=== PATIENT | male | born 1970 | race Caucasian/White ===

== ENCOUNTER → 2017-10-21 | Outpatient (CLI) | payer OTHER | END | disposition home or self-care (01) | LOC: LAB 08:28 | DX: K76.0 Fatty (change of) liver, not elsewhere classified (principal); K82.9 Disease of gallbladder, unspecified ==

== ENCOUNTER 2018-11-26 10:08 | Inpatient (IN) | payer OTHER ==
[2018-11-26] VITALS (48 sets, daily range): BP systolic 81–123; BP diastolic 35–79
[~2018-11-26] VITALS: Ht 182.8 cm; Wt 112.8 kg
--- NOTE | ~2018-11-26 | PR ---
[place], [place] PROGRESS NOTE [id number] UN[facility] #: [id number] ROOM: 427 DOCTOR: VERNON REYES MD BIRTHDATE: [birth year] DOS: 11/29/2018 SUBJECTIVE: The patient is doing better. He says that he is unable to sleep. His breathing is much better. Cough has subsided. OBJECTIVE: VITAL SIGNS: Blood pressure is 133/88, pulse of 71, respirations 20, temperature 98.1. LUNGS: Clear. HEART: Regular. ABDOMEN: Obese, soft. EXTREMITIES: Without any edema. ASSESSMENT AND PLAN: 1. Right lower lobe pneumonia, on IV antibiotics, doing clinically much better. 2. Sepsis pattern with blood cultures done on the at 10:54 showing gram-positive cocci and negative aerobic. Another bottle at the same time did not show any bacterial growth, so this could be a contaminant. Sputum culture shows normal casimiro. The patient is stable. The plan is to discharge him to home today on p.o. antibiotics and follow up with his PCP as an outpatient. VERNON REYES MD CM:PNTRANS [id number] VERNON REYES MD 11/30/18 1251 interface
--- NOTE | ~2018-11-26 | PR ---
[place], [place] PROGRESS NOTE NAME: DARI MURILLO [facility] #: [id number] UNIT #: [id number] ROOM: 427 DOCTOR: VERNON REYES MD BIRTHDATE: [birth year] DOS: SUBJECTIVE: The patient is doing better, does not have any new complaints. He has a cough, which is productive of scant amounts of yellow sputum. OBJECTIVE: VITAL SIGNS: Blood pressure is 103/61, pulse of 78, respirations 16, temperature 98.4. LUNGS: Diminished breath sounds, scattered rales in the right lung base. HEART: Regular. ABDOMEN: Obese. EXTREMITIES: Without any edema. IMAGING: CT of the chest shows right lower lobe pneumonia with parapneumonic pleural effusion. LABORATORY DATA: Blood cultures, gram-positive cocci in pairs and chains in the aerobic. Complete culture report is not available yet. ASSESSMENT AND PLAN: 1. Right lower lobe pneumonia, possible gram negative. We do not have a sputum culture back. Continue IV antibiotics. 2. Sepsis with positive blood cultures. Awaiting final identification to decide on medication plan for home. 3. Lactic acid has resolved. WBC count has become normal with the antibiotics. 4. Type 2 diabetes mellitus. Blood sugar is fairly controlled, 215 yesterday. 5. Benign hypertension. Pressures still on the low side, does not need to take any antihypertensives right now. VERNON REYES MD CM:PNTRANS [phone] VERNON REYES MD 11/28/18 1653 interface
--- NOTE | ~2018-11-26 | WRIGHTHP ---
[place], [place] PATIENT HISTORY AND PHYSICAL EXAM NAME: DARI MURILLO [facility] #: [id number] UNIT #: [id number] ROOM: 427 DOCTOR: VERNON REYES MD BIRTHDATE: [birth year] DOS: 11/26/2018 HISTORY OF PRESENT ILLNESS: This patient is not known to me. 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 He had a high-grade fever and severe persistent cough the day before admission, so he decided to come into the Emergency Room. He denies having any chest pains, palpitations, does not have any pleuritic complaint, does not have any nausea, any emesis, any abdominal pain, fever or chills. PAST MEDICAL HISTORY: Significant for: 1. Hypertension. 2. Type 2 diabetes mellitus. MEDICATIONS: Amlodipine/olmesartan 5/40 one tablet daily, gemfibrozil 600 b.i.d., metformin 500 two in the morning and 2 in the evening, Effexor 150 daily, vitamin E 400 units b.i.d. SOCIAL HISTORY: Nonsmoker, does not use any alcohol. 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 FAMILY HISTORY: Significant for father, who is healthy. Mother who . The patient is unable to tell me exact diagnosis. PHYSICAL EXAMINATION: GENERAL: He is awake and alert and oriented. VITAL SIGNS: Graphic trend shows a blood pressure of 108/63, pulse of 90, respirations 14, afebrile. LUNGS: Diminished breath sounds. No wheezes, rales or rhonchi heard. HEART: Regular, tachycardic. ABDOMEN: Obese. EXTREMITIES: Without any edema. ASSESSMENT AND PLAN: The patient is a 48-year-old who presents with: 1. Fever, cough, mild shortness of breath. He was hypotensive in the Emergency Room with elevated lactic acid, underlying sepsis. The patient's rapid flu was negative. Because of sepsis and hypotension, he was placed on IV fluids and admitted to ICU and Levophed was started. The vasopressor has helped. His pressures have normalized this morning. The Levophed has been tapered off. 2. Right lower lobe pneumonia. We will do a CT of the chest to see the extent of infection. IV antibiotics have been started. Sputum cultures have been ordered. 3. Positive blood cultures this morning. Final identification is not available. The patient has been ordered vancomycin, Zosyn and azithromycin, which are being continued for right now until we get final identification, only one bottle is positive so far. 4. Benign hypertension since hypotensive pressure, antihypertensives are on hold. 5. Type 2 diabetes mellitus. Blood sugars will be checked with coverage scale. Hold off metformin right now. 6. Acute kidney injury, possibly acute tubular necrosis from hypotension. [place], [place] PATIENT HISTORY AND PHYSICAL EXAM NAME: DARI MURILLO UNIT #: [id number] ROOM: [facility] DOCTOR: VERNON REYES MD BIRTHDATE: [birth year] 7. Hypokalemia. Supplementation ordered. VERNON REYES MD CM:HISPHYS:PATIENT HISTORY AND PHYSICAL EXAMINATION [id number] VERNON REYES MD 11/29/18 1412 interface
--- NOTE | ~2018-11-26 | DS ---
[place], [place] DISCHARGE SUMMARY NAME: DARI MURILLO [facility] #: [id number] UNIT #: [id number] ROOM: 427 DOCTOR: VERNON REYES MD BIRTHDATE: [birth year] DOS: 11/29/2018 HOSPITAL COURSE: This patient is a 48-year-old. The patient comes in with complaints of increasing weakness, tiredness, high-grade fever plus persistent cough. Please refer to H and P for details. After admission, he was found to be septic with tachycardia, tachypnea, high-grade fever, elevated lactic acid and chest x-ray showing right lower lobe pneumonia. CT of the chest was done, which proved that it was indeed an acute community-acquired pneumonia. The patient is placed on IV antibiotics. Blood cultures, sputum cultures were done. Sputum cultures are negative. Blood cultures only one bottle anaerobic did come back gram-positive, but the identification has not been completed yet. The other bottle is negative. The patient is stable and improved with IV fluids and the pressors have been discontinued. The lactic acid is normalized. WBC count is normal, so the plan is to discharge him to home today. He will need to have MRSA of the nares was negative. He will need to have an outpatient Chest x-ray to see whether the pneumonia is clearing and also he will need to be placed on antibiotics upon discharge. DISCHARGE MEDICATIONS: His home medications, which include Akira 5/40 one tablet daily, Lopid 600 b.i.d., Effexor 150 daily, metformin 500 two in the morning, 2 in the evening, vitamin E 400 units twice a day, Augmentin 875 twice a day for 7 days. VERNON REYES MD CM:DISCHARG [id number] VERNON REYES MD 11/29/18 2323 interface
--- NOTE | ~2018-11-26 | EKG ---
[place], [place] ELECTROCARDIOGRAM REPORT NAME: DARI MURILLO UNIT #: [id number] ROOM: 427 DOCTOR: SHELLIE DRAFT REPORT BIRTHDATE: [birth year] [facility] Test Date: 2018-11-26 Test Time: 10:20:14 Pat Name: DARI MURILLO Department: Room: 427 Gender: M Motor Tester: Love [place] : 1970 Requested By: KELSEY WHITE Order Number: [id number] Reading MD: Niraj Bergeron MD Measurements Intervals Wilcox Rate: 107 P: 78 OR: 74 QRS: 27 QRSD: 113 T: -89 QT: 326 QTc: 435 Interpretive Statements Sinus tachycardia Borderline intraventricular conduction delay Abnormal R-wave progression, early transition Abnrm T, consider ischemia, anterolateral lds Electronically Signed On 12-02-2018 8:05:23 PDT by Niraj Bergeron MD CM:EKGRPT:ELECTROCARDIOGRAM REPORT [id number] KELSEY HENSLEY DRAFT REPORT KELSEY LEVY
[2018-11-26] MEDS ORDERED: AZOR 5-40 MG T1 EACH PO (10:16)
[2018-11-26] MEDS ORDERED: EFFEXOR XR150 M1 PO (10:16)
[2018-11-26] MEDS ORDERED: LOPID600 M1 PO (10:16)
[2018-11-26] MEDS ORDERED: GLUCOPHAGE500 MG PO (10:17)
[2018-11-26 11:06] LABS: HEMATOCRIT 35.3 % (42.0-52.0); HEMOGLOBIN 12.2 g/dl (14.0-18.0); MEAN CELL VOLUME 86.7 fl (80.0-94.0); MEAN CORPUSCULAR HGB CONC 34.6 g/dl (33.0-37.0); MEAN PLATELET VOLUME 11.3 fl (9.6-12.3); PLATELET COUNT AUTOMATED 145 10*3/uL (130-400); RED BLOOD COUNT 4.07 10*6/uL (4.50-5.90); WHITE BLOOD COUNT 11.7 10*3/uL (4.8-10.8)
[2018-11-26 11:16] LABS: ACT PARTIAL THROMBO TIME 26.5 SECONDS (20.8-31.5); INTERNATIONAL NORM RATIO 1.1 (2.0-3.5)
[2018-11-26 11:21] LABS: ALBUMIN 3.4 gm/dl (3.1-4.5); ALKALINE PHOSPHATASE 52 U/L (45-117); BUN 33 mg/dl (7-24); CHLORIDE 100 mmol/L (98-107); CREATININE 1.87 mg/dL (0.70-1.30); LIPASE 45 U/L (73-393); POTASSIUM 3.2 mmol/L (3.5-5.1); SGOT/AST 12 IU/L (3-35); SGPT/ALT 27 U/L (12-78); SODIUM 134 mmol/L (136-145); TOTAL PROTEIN 7.3 gm/dL (6.4-8.2)
[2018-11-26 11:27] LABS: TROPONIN I < 0.015 ng/ml (<0.045)
[2018-11-26 11:31] LABS: PLATELET SUFFICIENCY NORMAL (NORMAL); TOTAL CELLS COUNTED 100 #CELLS
[2018-11-26 11:32] LABS: POLYCHROMASIA SLIGHT
[2018-11-26 12:06] LABS: BILIRUBIN NEGATIVE (NEGATIVE); BLOOD NEGATIVE (NEGATIVE); CLARITY SL CLOUDY (CLEAR); COLOR YELLOW (YELLOW); GLUCOSE NEGATIVE (NEGATIVE); KETONE TRACE (NEGATIVE); LEUKO ESTERASE NEGATIVE (NEGATIVE); NITRITE NEGATIVE (NEGATIVE); PH 5.5 (5.0-9.0); UROBILINOGEN 0.2 E.U./dl (0.2-1.0)
[2018-11-26 12:16] LABS: BACTERIA 3+; HYALINE CAST 50-55
--- NOTE | 2018-11-26 12:40 | NUR ---
PT SITTING UP IN BED WITH AT BEDSIDE EATING LUNCH. NO VERBAL COMPLAINTS NOTED.
--- NOTE | 2018-11-26 13:02 | NUR ---
PT SITTING ON THE EDGE OF THE BED, DENIES ANY DIZZINESS, NO VOICED C/O AT THIS TIME.
--- NOTE | 2018-11-26 13:35 | NUR ---
A 48 yr old male, admitted to [facility]U, under the services of VERNON Florence MD with a diagnosis of Severe sepsis, renal insufficeincy, pneumonia and hypokalemia. Chief complaint is passed out at [facility] today, after being sick for almost 2 weeks, worse since yesterday. Patient arrived via stretcher from ER. Monitor applied. Initial assessment completed. Vital signs taken and recorded. See assessment for past medical history, medications and allergies. Patient and/or family oriented to unit. [facility] visitation policy reviewed. Clothing/patient valuable form completed. JORDAN ALCALA
[2018-11-26] MEDS ORDERED: VITAMIN E400 UNI3 PO (14:02)
--- NOTE | 2018-11-26 14:42 | NUR ---
MESSAGE LEFT ON DR REYES'S VOICEMAIL TO CALL ME BACK WITH ADMISSION ORDERS.
--- NOTE | 2018-11-26 15:02 | NUR ---
DR REYES CALLED BACK, REVIEWED CONDITION. ORDERS RECEIVED.
--- NOTE | 2018-11-26 16:28 | NUR ---
AN ADDITIONAL IV SITE(20 ACCUCATH) STARTED LEFT UPPER ARM, USING ULTRASOUND FOR GUIDANCE. PT HAS BEEN OOB TO BSC FOR WATERY BM AND URINE. HE DENIES DIZZINESS ON CHANGE OF POSITION. IV FLUIDS HAVE BEEN STARTED PER ORDER. AT BEDSIDE.
--- NOTE | 2018-11-26 16:48 | NUR ---
MENTIONS THAT PT HAS SOME "BAD TEETH". WILL PASS ON TO NEXT SHIFT.
--- NOTE | 2018-11-26 17:05 | NUR ---
CHART CHECK COMPLETE.
--- NOTE | 2018-11-26 17:29 | NUR ---
PT WITHOUT COMPLAINTS OR DISTRESS. VISITORS AT BEDSIDE. LEVOPHED TITRATED DOWN TO 7 MICS.
--- NOTE | 2018-11-26 18:24 | NUR ---
MAP REMAINS IN 80'S. LEVOPHED TITRATED DOWN TO 6 MICS/MIN.
--- NOTE | 2018-11-26 18:35 | NUR ---
117/77 WITH MAP 90. LEVOPHED HAS BEEN TITRATED DOWN TO 4 MICS/MIN.
--- NOTE | 2018-11-26 18:50 | NUR ---
LEVOPHED TITRATED DOWN TO 3 MICS/MIN.
--- NOTE | 2018-11-26 20:21 | NUR ---
LEVOPHED TITRATED DOWN TO 2 MICS/MIN.
--- NOTE | 2018-11-26 21:12 | NUR ---
PT SLEEPING. LEVOPHED REMAINS AT 2MCG/MIN.
--- NOTE | 2018-11-26 21:22 | NUR ---
IV SITES REMAIN ASYMPTOMATIC. EXCELLENT BLOOD RETURN FREQUENTLY CHECKED AT LEVOPHED SITE.
--- NOTE | 2018-11-26 21:33 | NUR ---
PT LAYING ON HIS LT SIDE SLEEPING...AWAKENS EASILY TO VERBAL STIMULI, ANSWERS AND RESPONDS APPROPRIATELY. BP 83/44 WITH MAP 59. LEVOPHED TITRATED BACK UP TO 4 MICS/MIN.
--- NOTE | 2018-11-26 22:52 | NUR ---
MAP 80'S. LEVOPHED TITRATED DOWN TO 3 MICS/MIN. PT SLEEPING.
[2018-11-27] VITALS (10 sets, daily range): BP systolic 103–128; BP diastolic 53–72
--- NOTE | 2018-11-27 | NUR ---
LEVOPHED TO 2 MICS/MIN.
--- NOTE | 2018-11-27 00:45 | NUR ---
LEVOPHED TITRATED TO OFF.
--- NOTE | 2018-11-27 01:08 | NUR ---
BP 111/59 (80) SINCE LEVOPHED GTT OFF. PT WITHOUT COMPLAINTS.
--- NOTE | 2018-11-27 06:01 | NUR ---
PT SLEEPING. ALSO, DR REYES WAS NOTIFIED OF CRITICAL LAB RESULT OF GRAM POSITIVE COCCI IN PAIRS IN ANEROBIC BOTTLE OF BLOOD CULTURE (PRELIMINARY) - ORDERS RECEIVED.
--- NOTE | 2018-11-27 06:22 | NUR ---
DR REYES VISITS. CONDITION DISCUSSED.
[2018-11-27 07:04] LABS: CHLORIDE 110 mmol/L (98-107); CREATININE 0.82 mg/dL (0.70-1.30); POTASSIUM 3.6 mmol/L (3.5-5.1); SODIUM 141 mmol/L (136-145)
[2018-11-27 07:06] LABS: BUN 16 mg/dl (7-24)
[2018-11-27 07:10] LABS: BASO % 0.1 % (0.0-1.0); EOS % 0.1 % (1.0-4.0); HEMATOCRIT 31.2 % (42.0-52.0); LYMPH # 0.8 10*3/uL (1.3-4.4); LYMPH % 9.1 % (27.0-41.0); MEAN CORPUSCULAR HGB 30.3 pg (27.0-31.0); MEAN CORPUSCULAR HGB CONC 35.3 g/dl (33.0-37.0); MEAN PLATELET VOLUME 12.1 fl (9.6-12.3); MONO # 0.5 10*3/uL (0.1-1.0); MONO % 5.4 % (3.0-9.0); NEUT # 7.7 10*3/uL (2.3-7.9); NEUT % 82.8 % (47.0-73.0); PLATELET COUNT AUTOMATED 124 10*3/uL (130-400); RED BLOOD COUNT 3.63 10*6/uL (4.50-5.90); RED CELL DISTRI WIDTH 14.2 % (0-14.5); WHITE BLOOD COUNT 9.2 10*3/uL (4.8-10.8)
--- NOTE | 2018-11-27 07:20 | NUR ---
DR REYES IN TO SEE PT EARLIER. NEW ORDERS RECEIVED.
--- NOTE | 2018-11-27 08:03 | NUR ---
PT AAOX3. RESP EASY. VSS. LUNG FLORES CLEAR. PT STATES HE HAS AN OCCASSIONAL COUGH. PT DENIES SOB OR PAIN AT THIS TIME. NO ACUTE DISTRESS NOTED. PT INFORMED OF CT OF CHEST ORDERED BY DR REYES. HIS QUESTIONS WERE ANSERED.
--- NOTE | 2018-11-27 08:45 | NUR ---
PT TO CT SCAN VIA WC.
--- NOTE | 2018-11-27 11:47 | NUR ---
8 HOUR CHART CHECK COMPLETED.
--- NOTE | 2018-11-27 13:30 | NUR ---
PT AMBULATED OUT TO 427. GAIT STEADY. PT REPORT GIVEN TO RECEIVING NURSE.
--- NOTE | 2018-11-27 22:47 | NUR ---
MEDICATED WITH JOEN BHARATIIEN FOR C/O SLEEPLESSNESS
[2018-11-28] VITALS: BP 103/61
[2018-11-28 07:16] LABS: BASO % 0.2 % (0.0-1.0); EOS # 0.1 10*3/uL (0.0-0.4); EOS % 0.9 % (1.0-4.0); HEMATOCRIT 29.3 % (42.0-52.0); HEMOGLOBIN 9.8 g/dl (14.0-18.0); LYMPH # 1.2 10*3/uL (1.3-4.4); LYMPH % 14.5 % (27.0-41.0); MEAN CORPUSCULAR HGB 29.9 pg (27.0-31.0); MEAN CORPUSCULAR HGB CONC 33.4 g/dl (33.0-37.0); MONO # 0.4 10*3/uL (0.1-1.0); MONO % 4.6 % (3.0-9.0); NEUT # 6.7 10*3/uL (2.3-7.9); NEUT % 78.3 % (47.0-73.0); PLATELET COUNT AUTOMATED 146 10*3/uL (130-400); RED BLOOD COUNT 3.28 10*6/uL (4.50-5.90); RED CELL DISTRI WIDTH 14.2 % (0-14.5); WHITE BLOOD COUNT 8.6 10*3/uL (4.8-10.8)
[2018-11-28 07:20] LABS: MEAN CELL VOLUME 89.3 fl (80.0-94.0)
[2018-11-28 07:46] LABS: BUN 18 mg/dl (7-24); CHLORIDE 108 mmol/L (98-107); CREATININE 0.76 mg/dL (0.70-1.30); POTASSIUM 4.1 mmol/L (3.5-5.1); SODIUM 139 mmol/L (136-145)
[2018-11-28 08:00] VITALS: BP 123/75
[2018-11-28 12:00] VITALS: BP 133/75
[2018-11-28 16:00] VITALS: BP 121/70
[2018-11-28 20:00] VITALS: BP 122/68
[2018-11-29] VITALS: BP 135/83
[2018-11-29 07:37] LABS: BASO % 0.3 % (0.0-1.0); EOS # 0.1 10*3/uL (0.0-0.4); HEMATOCRIT 31.1 % (42.0-52.0); HEMOGLOBIN 10.1 g/dl (14.0-18.0); LYMPH # 1.2 10*3/uL (1.3-4.4); LYMPH % 19.4 % (27.0-41.0); MEAN CELL VOLUME 89.4 fl (80.0-94.0); MEAN CORPUSCULAR HGB CONC 32.5 g/dl (33.0-37.0); MONO # 0.4 10*3/uL (0.1-1.0); MONO % 6.6 % (3.0-9.0); NEUT # 4.5 10*3/uL (2.3-7.9); NEUT % 72.2 % (47.0-73.0); PLATELET COUNT AUTOMATED 176 10*3/uL (130-400); RED BLOOD COUNT 3.48 10*6/uL (4.50-5.90); WHITE BLOOD COUNT 6.2 10*3/uL (4.8-10.8)
[2018-11-29 07:58] LABS: BUN 17 mg/dl (7-24); CHLORIDE 107 mmol/L (98-107); POTASSIUM 4.1 mmol/L (3.5-5.1); SODIUM 141 mmol/L (136-145)
[2018-11-29 08:00] VITALS: BP 126/78
--- NOTE | 2018-11-29 08:30 | NUR ---
Air Support Operations Operator in to talk to patient. Patient states lives at home with his . There are 0 steps in the home. Physician: Dr. Fredy Mock Pharmacy: [facility] Home health services: none Patient's level of ADLs: INDEPENDENT Patient has working utilities: yes DME: none Follow-up physician's appointment after d/c: he prefers to make his own follow up appt after discharge Does patient want to access PORTAL?: no Discharge plan discussed with patient. He lives at home with his . He is independent in his ADLs and ambulation. Discussed home health care services and he denies any home needs at this time. When medically stable he will be discharged to home. MAZIN TURNER
--- NOTE | 2018-11-29 08:49 | NUR ---
SPEECH PATHOLOGY Nursing screen complete. Speech pathology services are not indicated at this time however this dept. will be available should future needs arise. CAROL NORRIS MSCCC-BUSINESS ATTORNEY
--- NOTE | 2018-11-29 09:00 | NUR ---
PT SEEN AT THIS TIME. PT STATES HE IS READY TO GO HOME. NO S/S OF DISTRESS NOTED AND NO SOB NOTED. PT HAS NO COMPLAINTS AT THIS TIME. PT IS PLEASANT/COOPERATIVE AND USING APPROPRIATE SPEECH. WILL CONTINUE TO MONITOR.
[2018-11-29 12:00] VITALS: BP 133/88
[2018-11-29] MEDS ORDERED: AUGMENTIN 875-875 MG PO (14:53)
--- NOTE | 2018-11-29 15:39 | NUR ---
Discharge instructions reviewed with patient/family. Patient receptive and verbalizes understanding. Follow-up care arranged. Written instructions given to patient/family. TREY SANDERS
--- NOTE | 2018-11-30 08:13 | NUR ---
PHYSICAL THERAPY Nursing screen received. PAtient discharged. Thank you. Adenike Edge,PT
--- NOTE | 2018-12-01 13:23 | NUR ---
Nursing screen received. Patient discharged before OT screen could be completed. Thank you. Ruchi Hernández OTR/L
== END 2018-11-29 15:39 | disposition home or self-care (01) | DRG 871 ==
LOC: ED 10:08 → ICCU 13:02 → 4E 13:02 → ICCU 11-27 06:42 → 4E 11-27 13:35
PROVIDERS: Physician Assistant; ADMIT Internal Medicine
DX: A41.9 Sepsis, unspecified organism (principal); N17.0 Acute kidney failure with tubular necrosis; J18.1 Lobar pneumonia, unspecified organism; E87.2 Acidosis; E87.6 Hypokalemia; R65.20 Severe sepsis without septic shock; I10 Essential (primary) hypertension; E11.9 Type 2 diabetes mellitus without complications

== ENCOUNTER → 2018-12-17 | Outpatient (CLI) | payer OTHER ==
[~2018-12-17] MED LIST: AUGMENTIN 875-875 MG PO; AZOR 5-40 MG T1 EACH PO; EFFEXOR XR150 M1 PO; GLUCOPHAGE500 MG PO; LOPID600 M1 PO; VITAMIN E400 UNI3 PO
== END | disposition home or self-care (01) ==
LOC: CT 15:57
DX: R91.1 Solitary pulmonary nodule (principal); R05 Cough; I10 Essential (primary) hypertension; Z90.49 Acquired absence of other specified parts of digestive tract

== ENCOUNTER → 2021-12-28 | Outpatient (CLI) | payer OTHER ==
[2021-12-28 08:56] LABS: HEMATOCRIT 42.3 % (42.0-52.0); MEAN CELL VOLUME 82.5 fl (80.0-94.0); MEAN CORPUSCULAR HGB 27.5 pg (27.0-31.0); MEAN CORPUSCULAR HGB CONC 33.3 g/dl (33.0-37.0); MEAN PLATELET VOLUME 11.5 fl (9.6-12.3); RED BLOOD COUNT 5.13 10*6/uL (4.50-5.90); RED CELL DISTRI WIDTH 13.7 % (0-14.5)
[2021-12-28 09:14] LABS: ALKALINE PHOSPHATASE 84 U/L (45-117); BUN 16 mg/dl (7-24); CHLORIDE 103 mmol/L (98-107); CHOLESTEROL 161 mg/dL (<200); CPK 71 U/L (39-308); CREATININE 0.83 mg/dL (0.70-1.30); POTASSIUM 4.3 mmol/L (3.5-5.1); SGOT/AST 33 IU/L (3-35); SGPT/ALT 63 U/L (12-78); SODIUM 135 mmol/L (136-145); TOTAL PROTEIN 7.8 gm/dL (6.4-8.2); TRIGLYCERIDES 427 mg/dl (<150)
== END | disposition home or self-care (01) ==
LOC: LAB 08:37
PROVIDERS: ATTEND Family Medicine
DX: Z00.00 Encounter for general adult medical examination without abnormal findings (principal); E78.00 Pure hypercholesterolemia, unspecified; E11.9 Type 2 diabetes mellitus without complications

== ENCOUNTER → 2022-07-02 | Outpatient (CLI) | payer OTHER ==
[2022-07-02 08:17] LABS: HEMATOCRIT 39.8 % (42.0-52.0); MEAN CELL VOLUME 83.3 fl (80.0-94.0); MEAN CORPUSCULAR HGB 28.5 pg (27.0-31.0); MEAN CORPUSCULAR HGB CONC 34.2 g/dl (33.0-37.0); MEAN PLATELET VOLUME 11.5 fl (9.6-12.3); RED BLOOD COUNT 4.78 10*6/uL (4.50-5.90); RED CELL DISTRI WIDTH 13.7 % (0-14.5); WHITE BLOOD COUNT 4.7 10*3/uL (4.8-10.8)
[2022-07-02 08:34] LABS: ALKALINE PHOSPHATASE 71 U/L (46-116); BUN 17 mg/dl (9-23); CHLORIDE 102 mmol/L (98-107); CHOLESTEROL 160 mg/dL (<200); CPK 60 U/L (34-171); LDL CHOLESTEROL 49 mg/dL (9-159); POTASSIUM 4.4 mmol/L (3.4-5.1); SGPT/ALT 47 U/L (10-49); SODIUM 137 mmol/L (136-145); TRIGLYCERIDES 383 mg/dl (<150)
[2022-07-02 08:35] LABS: TOTAL PROTEIN 7.5 gm/dL (6.0-8.0)
== END | disposition home or self-care (01) ==
LOC: LAB 07:04
PROVIDERS: ATTEND Family Medicine
DX: I10 Essential (primary) hypertension (principal); E11.9 Type 2 diabetes mellitus without complications; E78.00 Pure hypercholesterolemia, unspecified; E55.9 Vitamin D deficiency, unspecified

== ENCOUNTER 2023-03-02 11:39 | Inpatient (IN) | payer OTHER ==
[~2023-03-02] VITALS: Ht 182.9 cm; Wt 107.5 kg
[2023-03-02 11:42] VITALS: BP 93/60
[2023-03-02 12:51] LABS: BASO # 0.1 10*3/uL (0.0-0.1); BASO % 0.5 % (0.0-1.0); EOS % 0.1 % (1.0-4.0); HEMATOCRIT 40.8 % (42.0-52.0); LYMPH # 1.2 10*3/uL (1.3-4.4); LYMPH % 11.2 % (27.0-41.0); MEAN CELL VOLUME 82.8 fl (80.0-94.0); MEAN CORPUSCULAR HGB 25.8 pg (27.0-31.0); MEAN CORPUSCULAR HGB CONC 31.1 g/dl (33.0-37.0); MEAN PLATELET VOLUME 11.8 fl (9.6-12.3); MONO # 0.4 10*3/uL (0.1-1.0); NEUT # 9.3 10*3/uL (2.3-7.9); NEUT % 83.8 % (47.0-73.0); PLATELET COUNT AUTOMATED 272 10*3/uL (130-400); RED BLOOD COUNT 4.93 10*6/uL (4.50-5.90); RED CELL DISTRI WIDTH 14.8 % (0-14.5); WHITE BLOOD COUNT 11.1 10*3/uL (4.8-10.8)
[2023-03-02 13:15] LABS: ALKALINE PHOSPHATASE 74 U/L (46-116); BUN 14 mg/dl (9-23); CHLORIDE 104 mmol/L (98-107); LIPASE 47 U/L (12-53); SGPT/ALT 38 U/L (10-49); TOTAL PROTEIN 7.4 gm/dL (6.0-8.0)
[2023-03-02 13:21] VITALS: BP 90/58
[2023-03-02 15:54] LABS: BILIRUBIN Negative (Negative); BLOOD Negative (Negative); CLARITY Cloudy (Clear); COLOR Yellow (Yellow); GLUCOSE Negative (Negative); KETONE Negative (Negative); LEUKO ESTERASE Negative (Negative); NITRITE Negative (Negative); SPECIFIC GRAVITY >= 1.030 (1.001-1.030); UROBILINOGEN 0.2 E.U./dl (0.0-1.0)
[2023-03-02 16:12] LABS: BACTERIA 2+; EPITHELIAL CELLS 0-2
[2023-03-02 17:20] VITALS: BP 122/71
[2023-03-02 20:00] VITALS: BP 121/72
[2023-03-03] VITALS (14 sets, daily range): BP systolic 92–149; BP diastolic 43–87
[2023-03-04] VITALS: BP 113/67
[2023-03-04 06:58] LABS: BASO % 0.1 % (0.0-1.0); HEMATOCRIT 26.2 % (42.0-52.0); LYMPH # 1.5 10*3/uL (1.3-4.4); MEAN CELL VOLUME 81.6 fl (80.0-94.0); MEAN CORPUSCULAR HGB 25.9 pg (27.0-31.0); MEAN CORPUSCULAR HGB CONC 31.7 g/dl (33.0-37.0); MEAN PLATELET VOLUME 11.7 fl (9.6-12.3); MONO # 0.9 10*3/uL (0.1-1.0); MONO % 7.5 % (3.0-9.0); NEUT # 9.8 10*3/uL (2.3-7.9); RED BLOOD COUNT 3.21 10*6/uL (4.50-5.90); RED CELL DISTRI WIDTH 15.3 % (0-14.5); WHITE BLOOD COUNT 12.2 10*3/uL (4.8-10.8)
[2023-03-04 06:59] LABS: PLATELET COUNT AUTOMATED 167 10*3/uL (130-400)
[2023-03-04 07:19] LABS: BUN 12 mg/dl (9-23); CHLORIDE 106 mmol/L (98-107)
[2023-03-04 07:20] LABS: POTASSIUM 3.9 mmol/L (3.4-5.1)
[2023-03-04 08:00] VITALS: BP 105/62
[2023-03-04 12:00] VITALS: BP 126/69
[2023-03-04 16:00] VITALS: BP 127/71
[2023-03-04 20:00] VITALS: BP 133/71
[2023-03-05] VITALS: BP 152/72
[2023-03-05 05:33] LABS: BUN 8 mg/dl (9-23); CHLORIDE 104 mmol/L (98-107); POTASSIUM 3.6 mmol/L (3.4-5.1)
[2023-03-05 06:17] LABS: BASO % 0.2 % (0.0-1.0); EOS # 0.1 10*3/uL (0.0-0.4); EOS % 0.7 % (1.0-4.0); HEMATOCRIT 25.2 % (42.0-52.0); LYMPH # 1.6 10*3/uL (1.3-4.4); MEAN CELL VOLUME 82.9 fl (80.0-94.0); MEAN CORPUSCULAR HGB 26.3 pg (27.0-31.0); MEAN CORPUSCULAR HGB CONC 31.7 g/dl (33.0-37.0); MEAN PLATELET VOLUME 11.9 fl (9.6-12.3); MONO # 0.7 10*3/uL (0.1-1.0); MONO % 7.5 % (3.0-9.0); NEUT # 7.3 10*3/uL (2.3-7.9); NEUT % 75.2 % (47.0-73.0); PLATELET COUNT AUTOMATED 172 10*3/uL (130-400); RED BLOOD COUNT 3.04 10*6/uL (4.50-5.90); RED CELL DISTRI WIDTH 15.6 % (0-14.5); WHITE BLOOD COUNT 9.7 10*3/uL (4.8-10.8)
[2023-03-05 08:00] VITALS: BP 135/64
[2023-03-05 12:00] VITALS: BP 147/82
[2023-03-05 16:00] VITALS: BP 158/84
[2023-03-05 20:00] VITALS: BP 143/78
[2023-03-06] VITALS: BP 155/76
[2023-03-06 06:12] LABS: BASO % 0.2 % (0.0-1.0); EOS % 0.3 % (1.0-4.0); HEMATOCRIT 25.3 % (42.0-52.0); LYMPH # 0.9 10*3/uL (1.3-4.4); LYMPH % 7.7 % (27.0-41.0); MEAN CELL VOLUME 85.5 fl (80.0-94.0); MEAN CORPUSCULAR HGB 26.4 pg (27.0-31.0); MEAN CORPUSCULAR HGB CONC 30.8 g/dl (33.0-37.0); MEAN PLATELET VOLUME 11.6 fl (9.6-12.3); MONO # 0.8 10*3/uL (0.1-1.0); MONO % 7.5 % (3.0-9.0); NEUT # 9.4 10*3/uL (2.3-7.9); NEUT % 83.7 % (47.0-73.0); PLATELET COUNT AUTOMATED 171 10*3/uL (130-400); RED BLOOD COUNT 2.96 10*6/uL (4.50-5.90); RED CELL DISTRI WIDTH 15.4 % (0-14.5); WHITE BLOOD COUNT 11.2 10*3/uL (4.8-10.8)
[2023-03-06 06:57] LABS: CHLORIDE 98 mmol/L (98-107); POTASSIUM 3.5 mmol/L (3.4-5.1)
[2023-03-06 07:01] LABS: BUN < 5 mg/dl (9-23)
[2023-03-06 08:00] VITALS: BP 151/59
[2023-03-06] MEDS ORDERED: HYDROCODONE-AC1 EAC1 PO (08:54)
[2023-03-06] MEDS ORDERED: ONDANSETRON HYDR4 M1 PO (08:54)
[2023-03-06] MEDS ORDERED: COLACE100 MG PO (08:54)
== END 2023-03-06 11:15 | disposition home or self-care (01) | DRG 330 ==
LOC: ED 11:39 → 4E 16:08 → EDHOLD 16:08 → 4E 16:57
PROVIDERS: Nurse Practitioner; ADMIT Internal Medicine; ATTEND Internal Medicine
PROC: 0DBG4ZZ Excision of Left Large Intestine, Percutaneous Endoscopic Approach (ICD-10-PCS; principal; 2023-03-03)
PROC: 3E0T3BZ Introduction of Anesthetic Agent into Peripheral Nerves and Plexi, Percutaneous Approach (ICD-10-PCS; 2023-03-03)
PROC: 3E0T33Z Introduction of Anti-inflammatory into Peripheral Nerves and Plexi, Percutaneous Approach (ICD-10-PCS; 2023-03-03)
PROC: 0DBM8ZZ Excision of Descending Colon, Via Natural or Artificial Opening Endoscopic (ICD-10-PCS; 2023-03-03)
DX: K92.2 Gastrointestinal hemorrhage, unspecified (principal); E87.20 Acidosis, unspecified; K56.1 Intussusception; I10 Essential (primary) hypertension; E86.0 Dehydration; E11.9 Type 2 diabetes mellitus without complications; K63.9 Disease of intestine, unspecified; E66.9 Obesity, unspecified; K63.5 Polyp of colon; Z68.32 Body mass index [BMI] 32.0-32.9, adult; Z82.49 Family history of ischemic heart disease and other diseases of the circulatory system; Z82.3 Family history of stroke